=== PATIENT | male | born 1940 | race Two or more races ===

== ENCOUNTER 2016-05-23 00:13 | Inpatient (IN) | payer MEDICAID ==
--- NOTE | 2016-05-23 00:34 | ED Physician Chart ---
Chief Complaint/HPI - Patient Information Date Seen:: 05/23/16 Time Seen:: 00:20 Chief Complaint:: poor oral intake History of Present Illness:: poor oral intake for two days. No vomiting, diarrhea, chest pain, fever, shortness or breath. Allergies:: Allergies Allergy/AdvReac Type Severity Reaction Status Date / Time MDX No Known Allergies - Nka Allergy Verified 05/23/16 00:24 [No Known Allergies - Nka] Historian:: Patient Review:: Nurse's Note Reviewed, Transfer documents Reviewed Review of Systems - Review of Systems General/Constitutional: No fever, No chills Head: No headache Eyes: No loss of vision ENT: No earache Neck: No neck pain Cardio Vascular: No chest pain, No palpitations Pulmonary: No SOB GI: No nausea, No vomiting G/U: No dysuria Musculoskeletal: No bone or joint pain Endocrine: No polyuria Psychiatric: No prior psych history, No depression Hematopoietic: No bruising Allergic/Immuno: No urticaria Neurological: Syncope, Focal symptoms Past Medical History - Past Medical History Past Medical History: HTN, Dyslipidemia (spiral fracture right tibia; ischemic heart disease; s/p CVA; aphasia; cataract; dementia) Family History: Other (unavailable) Social History: Care Facility Surgical History: Pacemaker Psychiatricy History: Dementia Medication: Reviewed Family Medical History - Family Member Mother History Unknown: Yes Physical Exam - Physical Examination General/Constitutional: No distress Other Gen/Cons comments:: chronically ill appearing Head: Atraumatic Eyes: Lids, conjuctiva normal, PERRL Skin: Nl inspection, No skin lesions Other ENMT comments:: partially edentulous Neck: No nuchal rigidity Respiratory: Nl effort/Exclusion, Clear to Auscultation Cardio Vascular: RRR, No murmur, gallop, rubs, NL S1 S2 GI: No tenderness/rebounding/guarding, No organomegaly, No hernia, Normal BS's Other Extremities comments:: contractured RUE Other Neuro/Psych comments:: paralysis right arm Misc: Normal back Labs/Radiology/EKG Results - Lab Results Results: Laboratory Results - last 24 hr 05/23/16 05/23/16 05/23/16 00:35 00:35 00:35 WBC 5.5 D RBC 3.50 L Hgb 10.0 L Hct 30.8 L D MCV 87.9 MCH 28.6 MCHC Differential 32.5 RDW 15.2 Plt Count 473 H D MPV 6.2 Neutrophils % 61.9 Lymphocytes % 26.8 Monocytes % 10.1 H Eosinophils % 0.2 Basophils % 1.0 Sodium 131 L Potassium 3.6 Chloride 103 Carbon Dioxide 23.8 Anion Gap 7.8 BUN 8 Creatinine 0.4 L Est GFR ( Amer) TNP Est GFR (Non-Af Amer) TNP BUN/Creatinine Ratio 20.0 Glucose 89 Calcium 8.8 Lipase 31 Phenytoin 7.4 L - EKG Interpretations Rhythm: NSR Bryan: normal Rate: 72 ED Septic Shock - . Is Septic Shock (SBP<90, OR Lactate>4 mmol\L) present?: No Reassessment (Disposition) - Reassessment Reassessment Condition:: Unchanged - Diagnosis Diagnosis:: anorexia; anemia - Patient Disposition Admitted to:: Med/Surg Spoke to:: Raymond Zamudio Admitting Medical Physician:: Raymond Zamudio Condition at Disposition:: Stable, Unchanged
[2016-05-23 00:48] LABS: % EOSINOPHILS 0.2 % (0.0-5.0); % LYMPHOCYTES 26.8 % (20.0-50.0); % MONOCYTES 10.1 % (2.0-10.0); % NEUTROPHILS 61.9 % (40.0-80.0); MEAN CELL VOLUME 87.9 fl (80-99); MEAN CORPUSCULAR HEMOGLOBIN 28.6 pg (27.0-31.0); MEAN CORPUSCULAR HGB CONC 32.5 pg (28.0-36.0); MEAN PLATELET VOLUME 6.2 fl; NEUTROPHILE ABSOLUTE 3.3 Th/cmm (1.8-8.0); RED CELL DISTRIBUTION WIDTH 15.2 % (11.5-20.0)
[2016-05-23 00:51] LABS: HEMATOCRIT 30.8 % (39.0-49.0); PLATELET COUNT 473 Th/cmm (150-400); WHITE BLOOD COUNT 5.5 Th/cmm (4.8-10.8)
[2016-05-23 01:01] LABS: ANION GAP 7.8 (7.0-16.0); BUN - UREA NITROGEN 8 mg/dL (7-25); CALCIUM SERUM 8.8 mg/dL (8.6-10.3); CARBON DIOXIDE 23.8 mEq/L (21.0-31.0); CHLORIDE 103 mEq/L (98-107); CREATININE - SERUM 0.4 mg/dL (0.7-1.3); GLUCOSE 89 mg/dL (70-105); LIPASE 31 U/L (11-82); POTASSIUM SERUM 3.6 mEq/L (3.5-5.1); SODIUM SERUM 131 mEq/L (136-145)
[2016-05-23] MEDS ORDERED: Magnesium Hydroxide (MOM) 30 mL UDC PO PRN (03:08)
[2016-05-23] MEDS ORDERED: Fleet Enema 135 mL RC PRN (03:08)
[2016-05-23] MEDS ORDERED: Acetaminophen 500 MG TAB PO PRN (03:08)
[2016-05-23] MEDS: D5-0.9%NS 1,000 ML IV SCH (04:45)
[2016-05-23] MEDS: Aspirin 81mg Chewable Tab PO SCH (09:42)
[2016-05-23] MEDS: Ferrous Sulfate 325 MG TAB PO SCH ×2 (09:43→18:38)
[2016-05-23] MEDS: Multivitamin Tab PO SCH (09:44)
--- NOTE | 2016-05-23 11:08 | History & Physical ---
CHIEF COMPLAINT: Poor oral intake with 21-pound weight loss over 9 months. HISTORY OF PRESENT ILLNESS: This is a 75-year-old male who was transferred from [facility] to [facility] ER for poor oral intake noted by the staff members. The patient has been noted to have 21-pound weight loss for the past 9 months with general weakness noted by the staff. During this time, the patient was noted to have anemia with hemoglobin of 7.4 and given iron supplementation. PAST MEDICAL HISTORY: The patient also has past medical history of dementia, hyperlipidemia, cataracts, osteoarthritis, seizure disorder, history of cardiac pacemaker, aphasia, hypertension, history of CVA with weakness to the left side. While in the ER, the patient had initial lab work, white count was normal at 5.5, hemoglobin 10.0, hematocrit 30.8, platelets 473. His phenytoin level was low at 7.4. Chem-7, sodium was low at 131, potassium 3.6, chloride 103, bicarbonate 23, BUN 8, creatinine 0.4, glucose 89. ALLERGIES: No known drug allergies. SOCIAL HISTORY: The patient is a resident at [facility]. Denies any tobacco use or alcohol use or IV drug use. FAMILY HISTORY: Noncontributory. REVIEW OF SYSTEMS: Essentially negative except for the symptoms noted in the HPI. PHYSICAL EXAMINATION: VITAL SIGNS: Temperature 97.8, pulse 78, respirations 18, blood pressure 129/65. GENERAL: This is a 75-year-old male, well developed, well nourished, appears stated age. HEENT: Normocephalic, atraumatic. Pupils equal, round, reactive to light and accommodation. Extraocular muscles intact. Ears: TMs intact. NECK: Supple, good range of motion. No thyromegaly. No lymphadenopathy. CARDIOVASCULAR: Regular rate and rhythm, no murmurs, rubs or clicks. LUNGS: Clear to auscultation. No rales, rhonchi or wheezing. ABDOMEN: Soft, nontender, nondistended. Bowel sounds are active in all 4 quadrants. No rebound tenderness, rigidity or guarding. EXTREMITIES: No clubbing, cyanosis or edema. NEUROLOGIC: Difficult to assess the patient's current condition. ASSESSMENT AND PLAN: 1. Poor oral intake and malnutrition with 21-pound weight loss. We will order nutritional consult. The patient currently on IV fluids. 2. Cerebrovascular accident with hemiparesis. We will order neuro consult with Dr. Cueva. 3. Hypertension and coronary artery disease. We will continue the patient's current blood pressure medication. 4. Dementia. 5. Anemia. We will continue iron supplementation. 6. Hyponatremia. The patient started on IV fluids at this time. 7. Seizure disorder. We will continue phenytoin. We will order neuro consult with Dr. Cueva. 8. Questionable history of depression. We will order a psych consult with Dr. Cam. JOB# [id number]
[2016-05-24] MEDS: D5-0.9%NS 1,000 ML IV SCH (05:39)
[2016-05-24] MEDS: Multivitamin Tab PO SCH (09:08)
[2016-05-24] MEDS: Ferrous Sulfate 325 MG TAB PO SCH ×2 (09:08→17:00)
[2016-05-24] MEDS: Aspirin 81mg Chewable Tab PO SCH (09:08)
--- NOTE | 2016-05-24 12:39 | Consultation ---
AGE: 75. SEX: Male. PHYSICIAN: Dr. Zamudio. SOLUTION ENGINEER: Dr. Cam. REASON FOR THE CONSULT: Agitation. HISTORY OF PRESENT ILLNESS: The patient is a 75-year-old male who was admitted to the hospital and the patient has been eating and he lost large amount of weight during the last few months. The patient said that he has poor appetite. The patient also has been in angry and in irritable mood at times. The patient also is restless and he tried to punch the staff when they try to help him. He also seems to be slightly confused and he was not able to answer any of questions coherently. PAST PSYCHIATRIC HISTORY: Not known, but the patient seems to might have dementia. PAST MEDICAL HISTORY: The patient admitted with weight loss. SOCIAL HISTORY: No known alcohol or drug use. MENTAL STATUS EXAM: The patient appears older than his stated age. Anxious. Irritable mood. Confused. Thought processes are circumstantial and tangential with flight of ideas. The patient did not answer questions regarding hallucinations or delusions, but seems to be actively responding to stimuli. The patient is alert and oriented to the situation, but not to the place or person. Unable to assess his memory because of his irritability and anger. ASSESSMENT: PRIMARY DIAGNOSIS: Unspecified psychosis. TREATMENT PLAN: We will continue monitoring his behavior and his condition closely. We will start the patient on Zyprexa 2.5 mg twice a day and we will adjust the dose. We will follow up. Thanks to Dr. Zamudio and will follow up with you. JOB# [id number]
[2016-05-25] MEDS: D5-0.9%NS 1,000 ML IV SCH ×3 (04:46→12:48)
[2016-05-25] MEDS: Multivitamin Tab PO SCH (09:08)
[2016-05-25] MEDS: Ferrous Sulfate 325 MG TAB PO SCH ×2 (09:08→16:56)
[2016-05-25] MEDS: Aspirin 81mg Chewable Tab PO SCH (09:09)
--- NOTE | 2016-05-25 18:40 | Admit Criteria Form ---
Admit Criteria Forms - Admit Criteria Diagnosis: MALNUTRITION Clinical Indications for Inpatient Care (Place 'X' for any and all applicable criteria): Ongoing inpatient care may be indicated for patient requiring artificial nutrition[B] as indicated by ANY ONE of the following (1)(32): [ ]I. BMI less than 16 [X]II Inability to maintain oral intake [ ]III. Severe metabolic abnormalities, including ANY ONE of the following(18): [ ]a) Metabolic acidosis as indicated by pH less than 7.30 [ ]b) Significant hypocalcemia as indicated by ANY ONE of the following(19): [ ]i) Calcium less than 7 mg/dL (1.75 mmol/L) [ ]ii) Calcium less than 8 mg/dL (2 mmol/L) with ANY ONE of the following: [ ]1) Neurologic symptoms [ ]2) Mental status changes [ ]3) Muscle spasms [ ]4) Seizures [ ]5) Breathing difficulty [ ]6) Cardiac arrhythmia or conduction defects [ ]7) Other significant symptoms or findings [ ]c) Significant hypomagnesemia as indicated by ANY ONE of the following(20)(21): [ ]i) Magnesium less than 1.0 mg/dL (0.41 mmol/L) [ ]ii) Magnesium less than 1.5 mg/dL (0.62 mmol/L) and ANY ONE of the following: [ ]1) Associated hypocalcemia with ANY ONE of the following: [ ]A. Neurologic symptoms [ ]B. Mental status changes [ ]C. Muscle spasms [ ]D. Seizures [ ]E. Breathing difficulty [ ]F. Cardiac arrhythmia or conduction defect [ ]G. Other significant findings [ ]2) Associated hypokalemia (potassium < 3 mEq/L (mmol/ L)) with risk of arrhythmia [ ]d) Refeeding syndrome with significant electrolyte abnormality as indicated by ANY ONE of the following(14)(15): [ ]i) Phosphorus less than 1 mg/dL (0.32 mmol/L) [ ]ii) Phosphorus < 1.5 mg/dL (0.48 mmol/L) with ANY ONE of the following significant symptoms or findings: [ ]1) Weakness [ ]2) Altered mental status(22) [ ]3) Breathing difficulty [ ]4) Seizures [ ]5) Rhabdomyolysis [ ] iii) Sodium less than 130 mEq/L (mmol/L) (new) [ ] iv) Sodium less than 135 mEq/L (mmol/L) with ANY ONE of the following: [ ]1) Mental status changes [ ]2) Seizures [ ] v) Potassium less than 3.0 mEq/L (mmol/L) despite treatment [ ]IV. Complication of parenteral nutrition requiring inpatient care; examples include(23): [ ]a) Catheter-related infection or thrombosis. [ ]b) Severe electrolyte abnormalities [ ]c) Severe hypoglycemia or hyperglycemia requiring inpatient care [ ]V. Complication of enteral nutrition requiring inpatient care (eg, gastric perforation) Extended stay beyond goal length of stay for primary condition may be needed until ALL of the following are present(1)(3)(16): [ ]a) Metabolic abnormalities resolved or manageable at a lower level of care ; examples include: [ ]i) Serum pH greater than 7.3 [ ]ii) Electrolyte status acceptable [ ]b) Complications of enteral or parenteral nutrition resolved or manageable at a lower level of care [ ]c) Medical comorbidities manageable at a lower level of care The original [facility] content created by [employer] has been revised. The portions of the content which have been revised are identified through the use of italic text or in bold, and [facility] has neither reviewed nor approved the modified material. All other unmodified content is copyright [facility] [facility]. Please see references footnoted in the original [facility] edition 2016 Admit Criteria Met?: Yes
--- NOTE | 2016-05-25 19:16 | Consultation ---
HISTORY OF PRESENT ILLNESS: A 75-year-old was brought in because the patient has been losing weight and getting weaker and weaker. Neurologically, patient with history of stroke with essentially aphasia, very limited speech. The patient with the right-sided weakness. X-rays, there is nothing new, this has been going on for some time. PAST MEDICAL HISTORY: 1. Stroke with the right-sided hemiplegia and aphasia 2. History of hypertension. 3. History of pacemaker. 4. Hyperlipidemia. 5. Dementia 6. Arthritis. 7. Cataracts. REVIEW OF SYSTEMS: The patient has weight loss. No marked abdominal pain. No complains of headaches. No chest pain, no shortness of breath. No cough, sputum or hemoptysis. SOCIAL HISTORY: Does not smoke or drink, in the resident facility. MEDICATIONS: As per reconciliation. Here, the patient is on aspirin 81, metoprolol, patient on Zyprexa 2.5 b.i.d. The patient on Dilantin 200 b.i.d., simvastatin, Zocor. PHYSICAL EXAMINATION: VITAL SIGNS: Temperature 97.7, blood pressure ____, pulse is around about 70s. NECK: Supple. No neck bruits. HEART: Sounds S1, S2. LUNGS: Clear. NEUROLOGIC: The patient is awake. The patient answers questions. Cranial nerves Pupils react to light. No definite field defect ____ right and left without difficulties. Slight facial droop, right. The patient moves the left-side okay, weakness, right arm, basically by the bedside. The patient's leg also weak on the right. INVESTIGATIONS: CT scan of the head pending, carotid Doppler pending. LABORATORY DATA: WBC is 5.5, hemoglobin is 10.0, platelets 473. Sodium 131, potassium 3.6, Dilantin level 7.5. IMPRESSION: 1. Stroke, right hemiplegia. 2. Seizures. Dilantin level 7.5, probably okay. He has had any seizure. I will keep it on the present dose. 3. The patient with weight loss. 4. Dementia. 5. Pacemaker. MANAGEMENT: CT scan of the head, carotid Doppler studies and labs. JOB# [id number]
--- NOTE | 2016-05-25 23:37 | Progress Notes ---
SUBJECTIVE: Chart reviewed and the patient interviewed. Also discussed the patient's condition with the staff and reviewed records and labs. The patient seems to be calmer and seems to be slightly less irritable and less agitated. The patient also still seems to be paranoid and staring at the space and seems to be responding to stimuli. He also still has periods of irritability, but less than before. He is also compliant in taking his medications, with no side effects of medications. ASSESSMENT: The patient is less agitated and less psychotic. TREATMENT PLAN: Continue Zyprexa at same dose. Also, continue to monitor behavior and continue to follow up. JOB# [id number]
[2016-05-26] MEDS: Ferrous Sulfate 325 MG TAB PO SCH ×2 (10:18→16:35)
[2016-05-26] MEDS: Aspirin 81mg Chewable Tab PO SCH (10:18)
[2016-05-26] MEDS: Multivitamin Tab PO SCH (10:18)
--- NOTE | 2016-05-26 13:22 | Diagnostic Imaging Report ---
Bilateral carotid Doppler ultrasound exam HISTORY: Stroke, CVA Sonographic sector images were obtained through the carotid bifurcation regions bilaterally. Associated Doppler data was obtained. The exam is limited and suboptimal due to lack of patient cooperation. Exam of the right side demonstrates generalized intimal thickening throughout the bifurcation region. No significant focal atherosclerotic plaque is seen. There is antegrade vertebral artery flow. Velocities and flow ratios are normal (ICC/CCA equals 0.79). The left side cannot be adequately evaluated due to lack patient cooperation. Velocities could not be obtained. IMPRESSION: 1. Incomplete exam is the left side cannot be evaluated due to lack of patient cooperation 2. No definite significant focal atherosclerotic plaque identified on the right side.
[2016-05-26 15:04] LABS: ALKALINE PHOSPHATASE 80 U/L (34-104); ANION GAP 6.2 (7.0-16.0); BILIRUBIN,TOTAL 0.1 mg/dL (0.3-1.0); BUN - UREA NITROGEN 7 mg/dL (7-25); BUN/CREATININE RATIO 23.3; CALCIUM SERUM 8.5 mg/dL (8.6-10.3); CARBON DIOXIDE 21.2 mEq/L (21.0-31.0); CHLORIDE 111 mEq/L (98-107); CHOLESTEROL 159 mg/dL (<200); CREATININE - SERUM 0.3 mg/dL (0.7-1.3); GLUCOSE 90 mg/dL (70-105); POTASSIUM SERUM 3.4 mEq/L (3.5-5.1); SGOT 13 U/L (13-39); SGPT/ALT 16 U/L (7-52); SODIUM SERUM 135 mEq/L (136-145); TRIGLYCERIDES 113 mg/dL (<150)
--- NOTE | 2016-05-26 16:47 | Diagnostic Imaging Report ---
CT scan of the brain without intravenous contrast HISTORY: Stroke, CVA Total DLP equals 664 CTDI equals 34.4 Axial sections were obtained from the base of the skull to the vertex. There is enlargement of the ventricular system along with enlargement of cerebral sulci and some recommended cisterns reflecting generalized severe atrophy. Hypodensity noted throughout the supratentorial white matter regions consistent with chronic small vessel ischemic disease. There is extensive hypodensity with volume loss consistent with a large region of encephalomalacia through the left parietal and occipital areas. Findings most likely related to changes of relatively large old infarcts. No acute intracerebral hemorrhage. No mass effect or shift of midline structures. No extra-axial masses or abnormal fluid collections. IMPRESSION: 1. Findings consistent with large areas of encephalomalacia and volume loss within the left parietal and occipital regions most likely related to changes of old infarcts. Correlation with patient history needed. 2. Severe generalized cerebral atrophy 3. Extensive supratentorial white matter changes most likely associated with chronic small vessel ischemic disease
--- NOTE | 2016-05-27 01:16 | Progress Notes ---
SUBJECTIVE: Chart reviewed and the patient interviewed. Also discussed the patient's condition with the staff and reviewed records and labs. The patient is still anxious, but his affect is brighter. The patient also still seems to be slightly agitated, but less than before. He also has been cooperative with his treatment. The patient denies any thoughts of suicide and denies any intention to harm himself. No side effects of medications. ASSESSMENT: The patient is less psychotic. TREATMENT PLAN: We will continue monitoring his behavior and his condition. Also, continue adjusting psychotropic medications and we will continue to follow up. [facility]# [id number]
[2016-05-27] MEDS: Multivitamin Tab PO SCH (09:11)
[2016-05-27] MEDS: Ferrous Sulfate 325 MG TAB PO SCH ×2 (09:11→16:34)
[2016-05-27] MEDS: Aspirin 81mg Chewable Tab PO SCH (09:11)
[2016-05-27] MEDS: D5-0.9%NS 1,000 ML IV SCH (09:13)
--- NOTE | 2016-05-28 03:05 | Consultation ---
REASON FOR CONSULTATION: Psychiatric evaluation. HISTORY OF PRESENT ILLNESS: A 75-year-old male admitted to the hospital. The patient has been losing some weight, poor appetite, noted to be irritable and restless. On [id number], the patient is calm, unfortunately not coherent. I am not really able to understand what he says. Dr. Cam has been seeing this patient over the past few days, has been making adjustments to his medication and treatments. No agitation noted. He is calm, no acute distress. MEDICATIONS: Reviewed. LABORATORY DATA: Labs reviewed. MENTAL STATUS EXAMINATION: stated age. Difficult to understand. Mood, unable to understand. Affect constricted. Thought processes, seems confused. He is trying to communicate, but I am not able to understand him. Concentration is fair. PROVISIONAL DIAGNOSIS: Unspecified psychosis. TREATMENT AND PLAN: Continue Zyprexa, titrate appropriately, monitor closely for any overt side effects. JOB# [id number]
[2016-05-28 11:16] LABS: ALDOLASE 2.6 U/L (3.3-10.3); T4 FREE 0.94 ng/dL (0.82-1.77)
--- NOTE | 2016-05-28 19:15 | Discharge Summary ---
PRELIMINARY DIAGNOSES: 1. Poor oral intake, malnutrition with 21-pound weight loss. 2. Cerebrovascular accident with hemiparesis. 3. Hypertension. 4. Coronary artery disease. 5. Dementia. 6. Anemia. 7. Hyponatremia. 8. Seizure disorder and questionable history of depression. DISCHARGE DIAGNOSES: 1. Poor oral intake. 2. Malnutrition. 3. 21-pound weight loss. 4. Cerebrovascular accident with hemiparesis. 5. Hypertension. 6. Coronary artery disease. 7. Dementia. 8. Anemia. 9. Hyponatremia. 10. Seizure disorder. BRIEF HISTORY OF PRESENT ILLNESS: This is a 75-year-old male who was transferred from long-term facility to [facility] ER for poor oral intake noted by the staff members. The patient has been noted to have had 21 pound weight loss in the past 9 months with general weakness noted by the staff. During this time, patient was noted to have anemia with hemoglobin of 7.4 and given iron supplementation. PAST MEDICAL HISTORY: Includes a history of dementia, hyperlipidemia, cataracts, osteoarthritis, seizure disorder, history of cardiac pacemaker, aphasia, hypertension and history of CVA with weakness to the left side. Initial lab work, white count was normal at 5.5, hemoglobin 10.0, hematocrit, ____, platelets 473. Phenytoin level was low at 7.4. Chem-7, sodium noted at 131, potassium 3.6, chloride 103, bicarbonate 23. BUN 8, creatinine 0.4, glucose 89. The patient was subsequently admitted for further evaluation and treatment. HOSPITAL COURSE: The patient was seen and evaluated by Neuro for a history of a CVA and seizure disorder. The patient underwent a CT of his during his hospital admission, which showed no acute intracranial hemorrhage, it was noted he has a previous CVA with large areas of encephalomalacia, volume loss to the left parietal and occipital regions, also severe generalized cerebral atrophy was noted with extensive ____ white matter changes associated with chronic small vessel the ischemia. The patient also underwent carotid duplex bilaterally, which the left side, was unable to be evaluated due to the patient's noncompliance with exam. The patient; however, had at the right side and evaluated which showed no significant focal atherosclerotic plaque. The patient also was seen and evaluated by Psychiatry, Dr. Cam, who evaluated the patient for psychosis. The patient currently had been placed on Zyprexa, which helped improve his current diagnosis of psychosis. The patient also was given Megace during his hospital stay, which helped improve his appetite. The patient was subsequently discharged in stable condition. He was transferred back to the long-term facility and to continue his current medications with the addition of Megace and Zyprexa. JOB# [id number]
== END 2016-05-27 17:14 | DRG 425 ==
LOC: ER 00:13 → TELE 03:00
PROVIDERS: ADMIT Family Medicine; ATTEND Family Medicine
DX: E87.1 Hypo-osmolality and hyponatremia (principal); E46 Unspecified protein-calorie malnutrition; F03.90 Unspecified dementia, unspecified severity, without behavioral disturbance, psychotic disturbance, mood disturbance, and anxiety; I69.354 Hemiplegia and hemiparesis following cerebral infarction affecting left non-dominant side; I10 Essential (primary) hypertension; I25.10 Atherosclerotic heart disease of native coronary artery without angina pectoris; D64.9 Anemia, unspecified; G40.909 Epilepsy, unspecified, not intractable, without status epilepticus; M19.90 Unspecified osteoarthritis, unspecified site; E78.5 Hyperlipidemia, unspecified; F29 Unspecified psychosis not due to a substance or known physiological condition; Z95.0 Presence of cardiac pacemaker; Z68.22 Body mass index [BMI] 22.0-22.9, adult; Z98.49 Cataract extraction status, unspecified eye; I69.320 Aphasia following cerebral infarction
CPT/HCPCS: 36415-UA; 70450-TC; 80048-TC; 80053-TC; 80061-TC; 80156-TC; 80185-TC; 82085-90; 82607-90; 82746-90; 83690-TC; 84439-90; 84443-TC; 85025-TC; 85652-TC; 93005; 93880-TC; J1644; J7042; Z7610

== ENCOUNTER 2018-04-29 15:26 | Inpatient (IN) | payer MEDICAID ==
--- NOTE | 2018-04-29 15:56 | ED Physician Chart ---
ED Chief Complaint/HPI - Patient Information Date Seen:: 04/29/18 Time Seen:: 15:40 Chief Complaint:: possible right hip fracture History of Present Illness:: Patient was sent here for possible fracture of his proximal right femur; mechanism unknown Allergies:: Allergies Allergy/AdvReac Type Severity Reaction Status Date / Time No Known Allergies Allergy Verified 05/23/16 00:34 Historian:: EMS Review:: Transfer documents Reviewed ED Review of Systems - Review of Systems General/Constitutional: No fever, No chills Skin: No skin lesions Head: No headache Eyes: No loss of vision ENT: No earache Neck: No neck pain, No swelling Cardio Vascular: No chest pain, No palpitations GI: No nausea, No vomiting G/U: No dysuria Musculoskeletal: Bone or joint pain ED Past Medical History - Past Medical History Past Medical History: Other (anemia; major depression; myocardial ischemia; status post spiral fracture right tibia; ischemic heart disease; hemiplegia and hemiparesis; seizure disorder; osteoarthritis; cataract; dementia) Family History: Other Social History: Care Facility (available) Surgical History: other Psychiatricy History: Depression (pacemaker) Medication: Reviewed Family Medical History - Family Member Mother History Unknown: Yes ED Physical Exam - Physical Examination Other Gen/Cons comments:: Chronically ill-appearing Head: Atraumatic Eyes: Lids, conjuctiva normal Skin: Nl inspection ENMT: External ears, nose nl Neck: No mass Respiratory: Nl effort/Exclusion Cardio Vascular: RRR GI: No tenderness/rebounding/guarding : No CVA tenderness Other Extremities comments:: Right-sided contracture Other Neuro/Psych comments:: Right upper extremity contracture ED Labs/Radiology/EKG Results - Lab Results Results: Abnormal Lab Results 04/29/18 04/29/18 16:00 16:00 WBC 13.3 H RBC 3.81 Hgb 11.9 L Hct 35.4 L MCV 92.9 MCH 31.2 H MCHC Differential 33.6 RDW 13.3 Plt Count 366 MPV 7.0 Neutrophils % 82.8 H Lymphocytes % 9.7 L Monocytes % 7.3 Eosinophils % 0.1 Basophils % 0.1 Sodium 138 Potassium 3.5 Chloride 103 Carbon Dioxide 27.0 Anion Gap 11.5 BUN 20 Creatinine 0.5 L Est GFR ( Amer) TNP Est GFR (Non-Af Amer) TNP BUN/Creatinine Ratio 40.0 Glucose 112 H Calcium 9.3 - Radiology Results Results: X-ray showed scoliosis and calcification of the aortic arch; no infiltrate. Right hip x-ray showed subcapital fracture ED Septic Shock - . Is Septic Shock (SBP<90, OR Lactate>4 mmol\L) present?: No ED Reassessment (Disposition) - Reassessment Reassessment Condition:: Unchanged - Diagnosis Diagnosis:: Subcapitate fracture right hip; dementia; right-sided weakness and contracture - Patient Disposition Admitted to:: Med/Surg Spoke to:: Gino Zamudio Admitting Medical Physician:: Gino Zamudio Condition at Disposition:: Stable, Unchanged
[2018-04-29 16:08] LABS: % BASOPHILS 0.1 % (0.0-2.0); % EOSINOPHILS 0.1 % (0.0-5.0); % LYMPHOCYTES 9.7 % (20.0-50.0); % MONOCYTES 7.3 % (2.0-10.0); % NEUTROPHILS 82.8 % (40.0-80.0); HEMATOCRIT 35.4 % (41.0-60); HEMOGLOBIN 11.9 gm/dL (12-16); LYMPHOCYTE ABSOLUTE 1.3 Th/cmm (1.5-3.0); MEAN CELL VOLUME 92.9 fl (80-99); MEAN CORPUSCULAR HEMOGLOBIN 31.2 pg (27.0-31.0); MEAN CORPUSCULAR HGB CONC 33.6 pg (28.0-36.0); PLATELET COUNT 366 Th/cmm (150-400); RED BLOOD COUNT 3.81 Mil/cmm (3.80-5.80); RED CELL DISTRIBUTION WIDTH 13.3 % (11.5-20.0); WHITE BLOOD COUNT 13.3 Th/cmm (4.8-10.8)
[2018-04-29 16:19] LABS: ANION GAP 11.5 (7.0-16.0); BUN - UREA NITROGEN 20 mg/dL (7-25); CALCIUM SERUM 9.3 mg/dL (8.6-10.3); CHLORIDE 103 mEq/L (98-107); CREATININE - SERUM 0.5 mg/dL (0.7-1.3); GLUCOSE 112 mg/dL (70-105); POTASSIUM SERUM 3.5 mEq/L (3.5-5.1); SODIUM SERUM 138 mEq/L (136-145)
[2018-04-29 23:11] VITALS: BP 131/64
[2018-04-30 06:25] LABS: % BASOPHILS 0.2 % (0.0-2.0); % LYMPHOCYTES 11.3 % (20.0-50.0); % MONOCYTES 9.2 % (2.0-10.0); % NEUTROPHILS 79.3 % (40.0-80.0); HEMATOCRIT 33.3 % (41.0-60); HEMOGLOBIN 10.9 gm/dL (12-16); LYMPHOCYTE ABSOLUTE 1.3 Th/cmm (1.5-3.0); MEAN CELL VOLUME 93.7 fl (80-99); MEAN CORPUSCULAR HEMOGLOBIN 30.8 pg (27.0-31.0); MEAN CORPUSCULAR HGB CONC 32.9 pg (28.0-36.0); MEAN PLATELET VOLUME 7.7 fl; NEUTROPHILE ABSOLUTE 8.9 Th/cmm (1.8-8.0); PLATELET COUNT 305 Th/cmm (150-400); RED BLOOD COUNT 3.55 Mil/cmm (3.80-5.80); RED CELL DISTRIBUTION WIDTH 13.4 % (11.5-20.0); WHITE BLOOD COUNT 11.2 Th/cmm (4.8-10.8)
[2018-04-30 06:41] LABS: ANION GAP 12.4 (7.0-16.0); BUN - UREA NITROGEN 18 mg/dL (7-25); CARBON DIOXIDE 26.2 mEq/L (21.0-31.0); CHLORIDE 105 mEq/L (98-107); CREATININE - SERUM 0.5 mg/dL (0.7-1.3); GLUCOSE 119 mg/dL (70-105); POTASSIUM SERUM 3.6 mEq/L (3.5-5.1); SODIUM SERUM 140 mEq/L (136-145)
--- NOTE | 2018-04-30 08:13 | History and Physical ---
History of Present Illness - HPI Chief Complaint: Possible right hip fracture HPI: 77 y/o male who presents to [facility] ER Here for possible right hip fracture. Was found to have tenderness to the right hip when the staff was turning the patient. Patient has a history of dementia, hyperlipidemia, cataracts, osteoarthritis, seizure d/o, cardiac pacemaker placement, aphasia, HTN, CVA w/ right sided weakness. While in the ER patient had an initial labwork which revealed.. - Lab Results Results: Abnormal Lab Results 04/29/18 04/29/18 16:00 16:00 WBC 13.3 H RBC 3.81 Hgb 11.9 L Hct 35.4 L MCV 92.9 MCH 31.2 H MCHC Differential 33.6 RDW 13.3 Plt Count 366 MPV 7.0 Neutrophils % 82.8 H Lymphocytes % 9.7 L Monocytes % 7.3 Eosinophils % 0.1 Basophils % 0.1 Sodium 138 Potassium 3.5 Chloride 103 Carbon Dioxide 27.0 Anion Gap 11.5 BUN 20 Creatinine 0.5 L Est GFR ( Amer) TNP Est GFR (Non-Af Amer) TNP BUN/Creatinine Ratio 40.0 Glucose 112 H Calcium 9.3 - Radiology Results Results: X-ray showed scoliosis and calcification of the aortic arch; no infiltrate. Right hip x-ray showed subcapital fracture Patient was subsequently admitted for further evaluation and treatment. Vital Signs: Last Vital Signs Temp 97.9 F 04/30/18 00:00 Pulse 95 04/30/18 00:00 Resp 18 04/30/18 04:00 BP 108/73 04/30/18 00:00 Pulse Ox 94 04/30/18 00:00 Past Medical History Cardiovascular: Report: CAD, HTN, Hyperlipidemia, Other (s/p pacemaker) Pulmonary: Report: COPD CUSHION FORMER: Report: CVA GI: Report: Other (aphasia) Psych: Report: No Pertinent Hx Musculoskeletal: Report: Osteoarthritis, Other (right hip fracture) Rheumatologic: Report: No pertinent Hx Infectious Disease: Report: No Pertinent Hx Renal/: Report: No Pertinent Hx Endocrine: Report: No Pertinent Hx Dermatology: Report: Other (dermatitis) - Past Surgical History Past Surgical History: No pertinent Hx Family Medical History - Family Member Mother History Unknown: Yes Other Medical History: Unable to obtain family medical history Social History Smoke: No Alcohol: None Drugs: None Lives: Shelter - Medications Home Medications: Home Medication Medication Instructions Recorded Type Aspirin [Aspirin Chewable] 81 mg PO DAILY 07/11/15 History Metoprolol Tartrate [Lopressor] 25 mg PO DAILY 07/11/15 History Multivitamin [Theragran] 1 tab PO DAILY 07/11/15 History Phenytoin Sodium Extended 200 mg PO BID 07/11/15 History [Dilantin] Psyllium [Metamucil] 1 tsp PO BID 07/11/15 History Simvastatin [Zocor] 40 mg PO HS 07/11/15 History Acetaminophen [Tylenol Extra 500 mg PO Q4HR PRN 05/23/16 History Strength] Acetaminophen [Tylenol] 650 mg PO Q4HR PRN 05/23/16 History Bisacodyl [Dulcolax] 10 mg RC DAILY PRN 05/23/16 History Docusate Sodium [Colace] 100 mg PO DAILY 05/23/16 History Ferrous Sulfate [Iron] 325 mg PO TID 05/23/16 History Fleet Enema 135 ml RC Q48HR PRN 05/23/16 History Magnesium Hydroxide [Milk of 30 ml PO DAILY PRN 05/23/16 History Magnesia] Magnesium Hydroxide [Milk of 30 ml PO DAILY PRN #0 udc 05/27/16 Rx Magnesia] - Allergies Allergies/Adverse Reactions: Allergies Allergy/AdvReac Type Severity Reaction Status Date / Time No Known Allergies Allergy Verified 05/23/16 00:34 Review of Systems - Review of Systems Constitutional: Report: No Significant Eyes: Report: No Significant ENT: Report: No Significant Respiratory: Report: No Significant Cardiovascular: Report: No Significant Gastrointestinal: Report: No Significant Genitourinary: Report: No Significant Musculoskeletal: Report: Other (right hip pain) Neurological: Report: Weakness (right sided weakness), Other (dementia) Physical Exam - Physical Exam HEENT: Report: Ears Nose Throat within normal limits, Pharnyx within normal limits Neck: Report: Within normal limits Cardiovascular Systems: Report: +s1/s2 noted, Regular, Rate and Rhythm Respiratory: Report: Breath Sounds are within normal limits Abdomen: Report: Non-tender to palpation Back: Report: Inspection of back is within normal limits. Extremities: Report: Other (c/o right hip pain) Skin: Report: Color of skin is within normal limits Neuro/Psych: Report: Mood affect is within normal limits, Weakness or sensory loss noted. (right sided weakness) - Lab Results All Lab Results last 24 hours: Laboratory Results - last 24 hr 04/29/18 04/29/18 04/30/18 16:00 16:00 05:50 WBC 13.3 H 11.2 H RBC 3.81 3.55 L Hgb 11.9 L 10.9 L Hct 35.4 L 33.3 L MCV 92.9 93.7 MCH 31.2 H 30.8 MCHC Differential 33.6 32.9 RDW 13.3 13.4 Plt Count 366 305 MPV 7.0 7.7 Neutrophils % 82.8 H 79.3 Lymphocytes % 9.7 L 11.3 L Monocytes % 7.3 9.2 Eosinophils % 0.1 0.0 Basophils % 0.1 0.2 Sodium 138 Potassium 3.5 Chloride 103 Carbon Dioxide 27.0 Anion Gap 11.5 BUN 20 Creatinine 0.5 L Est GFR ( Amer) TNP Est GFR (Non-Af Amer) TNP BUN/Creatinine Ratio 40.0 Glucose 112 H Calcium 9.3 04/30/18 05:50 WBC RBC Hgb Hct MCV MCH MCHC Differential RDW Plt Count MPV Neutrophils % Lymphocytes % Monocytes % Eosinophils % Basophils % Sodium 140 Potassium 3.6 Chloride 105 Carbon Dioxide 26.2 Anion Gap 12.4 BUN 18 Creatinine 0.5 L Est GFR ( Amer) TNP Est GFR (Non-Af Amer) TNP BUN/Creatinine Ratio 36.0 Glucose 119 H Calcium 9.0 - Assessment Assessment: right hip pain Subcapitate fracture right hip dementia HTn hyperlipidemia CAD leukocytosis improved. CVA w/ right-sided weakness and contracture - Plan Plan: admit to [facility] repeat CBC,CMP Rocephin 1gm IV ortho consult noted cardiology consult noted
[2018-04-30] MEDS ORDERED: Magnesium Hydroxide (MOM) 30 mL UDC PO PRN (08:24)
[2018-04-30] MEDS ORDERED: Fleet Enema 135 mL RC PRN (08:24)
--- NOTE | 2018-04-30 08:42 | Diagnostic Imaging Report ---
Pelvis (single view) HISTORY: Pain, preoperative Exam is extremely limited due to difficulty in patient positioning. The left femur is flexed across the lower pelvis resulting in partial obscuration of the right hip region. Questionable fracture in the region of the right femoral neck. A dedicated radiograph of the right hip would provide for further assessment. There is suggestion of a radiolucency within the intratrochanteric region of the left femur. Significance and etiology is uncertain. There is a severely distended stool-filled rectum consistent with a degree of fecal impaction. IMPRESSION: 1. Extremely limited exam. Partial obscuration of the right hip. Questionable fracture in the region of the right femoral neck. Dedicated radiographs of the right hip would provide additional assessment. 2. Radiolucency which appears to be within the intertrochanteric region of the left femur. Exact etiology uncertain. 3. Markedly distended stool-filled rectum consistent with a fecal impaction
--- NOTE | 2018-04-30 08:43 | Diagnostic Imaging Report ---
Right hip (single view) HISTORY: Pain Right hip is partially excluded. By the left femoral shaft. There is a mildly displaced intratrochanteric fracture. IMPRESSION: 1. Limited exam 2. Mildly displaced intratrochanteric fracture extending through the right femoral neck.
[2018-04-30] MEDS ORDERED: Morphine Sulfate 2 mg/mL 1mL Syr IVP PRN (08:44)
--- NOTE | 2018-04-30 08:44 | Diagnostic Imaging Report ---
Portable chest x-ray HISTORY: Cough, preoperative Exam limited due to difficulty in patient positioning. The heart is enlarged. Cardiac pacemaker lead wire projects over the right ventricle. Atherosclerotic calcification seen in the aorta. No acute focal pulmonary processes. IMPRESSION: 1. No acute focal prominent processes 2. Cardiomegaly with atherosclerotic vascular changes and pacemaker placement
[2018-04-30] MEDS: D5-0.45NS 1,000 ML IV SCH (09:00)
[2018-04-30] MEDS: Aspirin 81mg Chewable Tab PO SCH ×2 (09:49→10:10)
[2018-04-30] MEDS: Ferrous Sulfate 325 MG TAB PO SCH ×4 (09:49→20:20)
[2018-04-30] MEDS: Multivitamin Tab PO SCH ×2 (09:49→10:10)
[2018-04-30] MEDS: cefTRIAXone 1 GM in Sodium Chloride 0.9% 50 ML IV SCH (10:09)
--- NOTE | 2018-04-30 23:31 | Consultation ---
DATE OF CONSULTATION: 04/30/[address] Zamudio. HISTORY OF PRESENT ILLNESS: This is a 77-year-old male patient who has right hip fracture, following this, the patient is admitted. The patient is a poor historian. History is available from the medical records. PAST MEDICAL HISTORY: Dementia, hyperlipidemia, cataracts, osteoarthritis, seizure disorder, sick sinus syndrome with pacemaker, CVA with late effect, left-sided weakness. FAMILY HISTORY: Unremarkable. SOCIAL HISTORY: No history of smoking, alcohol abuse. ALLERGIES: None. PHYSICAL EXAMINATION: VITAL SIGNS: Blood pressure 120/80, pulse 70, and respirations 20. HEAD: Normocephalic. No lumps or bumps. EYES: Pupils equal, reactive to light. Fundi show AV nicking, sclerae white, conjunctivae pink. NECK: Carotid 2+. Normal upstroke. JVD flat. Thyroid not palpable. Lymph nodes not palpable. CHEST: Shows increased AP diameter. No kyphosis, scoliosis. LUNGS: Bilateral bronchovesicular breath sounds. HEART: PMI fifth intercostal space with lateral to midclavicular line. S1, S2. No S3. Soft S4. ABDOMEN: Soft. Liver and spleen not palpable. No organomegaly. Bowel sounds active. NEUROLOGIC: Left-sided weakness. CLINICAL IMPRESSION: Right hip fracture, dementia, hyperlipidemia, cataracts, osteoarthritis, seizure disorder, sick sinus syndrome with pacemaker, cerebrovascular accident with late effect, and left-sided weakness. PLAN: The patient is cleared for surgery. JOB# [id number]
--- NOTE | 2018-05-01 06:10 | General Progress Note ---
Subjective - Review of Systems Service Date: 05/01/18 Subjective: Patient is resting in bed. No acute distress. Awake, alert, afebrile Objective - Results Result Diagrams: 04/30/18 05:50 04/30/18 05:50 Recent Labs: Laboratory Last Values WBC 11.2 Th/cmm (4.8-10.8) H 04/30/18 05:50 RBC 3.55 Mil/cmm (3.80-5.80) L 04/30/18 05:50 Hgb 10.9 gm/dL (12-16) L 04/30/18 05:50 Hct 33.3 % (41.0-60) L 04/30/18 05:50 MCV 93.7 fl (80-99) 04/30/18 05:50 MCH 30.8 pg (27.0-31.0) 04/30/18 05:50 MCHC Differential 32.9 pg (28.0-36.0) 04/30/18 05:50 RDW 13.4 % (11.5-20.0) 04/30/18 05:50 Plt Count 305 Th/cmm (150-400) 04/30/18 05:50 MPV 7.7 fl 04/30/18 05:50 Neutrophils % 79.3 % (40.0-80.0) 04/30/18 05:50 Lymphocytes % 11.3 % (20.0-50.0) L 04/30/18 05:50 Monocytes % 9.2 % (2.0-10.0) 04/30/18 05:50 Eosinophils % 0.0 % (0.0-5.0) 04/30/18 05:50 Basophils % 0.2 % (0.0-2.0) 04/30/18 05:50 Sodium 140 mEq/L (136-145) 04/30/18 05:50 Potassium 3.6 mEq/L (3.5-5.1) 04/30/18 05:50 Chloride 105 mEq/L (98-107) 04/30/18 05:50 Carbon Dioxide 26.2 mEq/L (21.0-31.0) 04/30/18 05:50 Anion Gap 12.4 (7.0-16.0) 04/30/18 05:50 BUN 18 mg/dL (7-25) 04/30/18 05:50 Creatinine 0.5 mg/dL (0.7-1.3) L 04/30/18 05:50 Est GFR ( Amer) TNP 04/30/18 05:50 Est GFR (Non-Af Amer) TNP 04/30/18 05:50 BUN/Creatinine Ratio 36.0 04/30/18 05:50 Glucose 119 mg/dL (70-105) H 04/30/18 05:50 Calcium 9.0 mg/dL (8.6-10.3) 04/30/18 05:50 - Physical Exam Vitals and I&O: Vital Signs Temp 97.5 F 05/01/18 04:00 Pulse 89 05/01/18 04:00 Resp 18 05/01/18 04:00 BP 102/57 05/01/18 04:00 Pulse Ox 91 05/01/18 04:00 Intake & Output 04/30/18 04/30/18 05/01/18 06:59 18:59 06:59 Intake Total 100 350 0 Output Total 1 Balance 99 350 0 Weight (lbs) 52.571 kg 52.526 kg 52.163 kg Intake: Oral 100 350 0 Output: Urine 1 Stool 0 Other: # Voids 2 Weight Source Bedscale Bedscale Bedscale Active Medications: Current Medications Acetaminophen (Tylenol) 650 mg PO Q4HR PRN PRN Reason: Pain or Fever >101 Stop: 06/29/18 08:23 Aspirin (Aspirin Chewable) 81 mg PO DAILY [facility] Stop: 06/29/18 08:59 Last Admin: 04/30/18 10:10 Dose: Not Given Bisacodyl (Dulcolax 10 Mg Supp) 10 mg RC DAILY PRN PRN Reason: Constipation Stop: 06/29/18 08:23 Docusate Sodium (Colace) 100 mg PO DAILY [facility] Stop: 06/29/18 08:59 Last Admin: 04/30/18 09:50 Dose: Not Given Ferrous Sulfate (Iron) 325 mg PO TID [facility] Stop: 06/29/18 08:59 Last Admin: 04/30/18 20:20 Dose: Not Given Ceftriaxone Sodium 1 gm/ (Sodium Chloride) 50 mls @ 100 mls/hr IV Q24HR [facility] Stop: 06/29/18 08:59 Last Admin: 04/30/18 10:09 Dose: Not Given Dextrose/Sodium Chloride (D5-0.45ns) 1,000 mls @ 50 mls/hr IV .Q20H [facility] Stop: 06/29/18 08:44 Last Admin: 04/30/18 09:00 Dose: Not Given Magnesium Hydroxide (Milk Of Magnesia) 30 ml PO DAILY PRN PRN Reason: Constipation Stop: 06/29/18 08:23 Metoprolol Tartrate (Lopressor) 25 mg PO DAILY [facility] Stop: 06/29/18 08:59 Last Admin: 04/30/18 09:49 Dose: Not Given Morphine Sulfate (Morphine) 1 mg IVP Q4HR PRN PRN Reason: Pain (Moderate) Stop: 06/29/18 08:43 Multivitamins/Vitamin C (Theragran) 1 tab PO DAILY [facility] Stop: 06/29/18 08:59 Last Admin: 04/30/18 10:10 Dose: Not Given Phenytoin (Dilantin) 200 mg PO BID [facility] Stop: 06/29/18 08:59 Last Admin: 04/30/18 17:23 Dose: Not Given Psyllium Hydrophilic Mucilloid (Metamucil) 1 pkt PO BID [facility] Stop: 06/29/18 08:59 Last Admin: 04/30/18 17:23 Dose: Not Given Simvastatin (Zocor) 40 mg PO HS [facility]; Protocol Stop: 06/29/18 20:59 Last Admin: 04/30/18 20:20 Dose: Not Given Sodium Phosphate (Fleet Enema) 135 ml RC Q48HR PRN PRN Reason: Constipation Stop: 06/29/18 08:23 General: Alert, No acute distress HEENT: Atraumatic, PERRLA, EOMI Neck: Supple Cardiovascular: Regular rate, Normal S1, Normal S2 Lungs: Clear to auscultation Abdomen: Bowel sounds Extremities: Other (right hip fracture) - Procedures Procedures: Procedures Procedure Code Date IMMOBILIZATION OF RIGHT LOWER EXTREMITY USING BRACE [id number] 07/11/15 MUSCULOSKELETAL SURGERY 20788 07/11/15 Assessment/Plan - Assessment Assessment: right hip pain Subcapital fracture right hip dementia HTN hyperlipidemia CAD leukocytosis CVA w/ right-sided weakness and contracture anemia - Plan Plan: admit to [facility] repeat CBC,CMP Rocephin 1gm IV ortho consult
[2018-05-01 06:46] LABS: % BASOPHILS 0.5 % (0.0-2.0); % EOSINOPHILS 0.1 % (0.0-5.0); % LYMPHOCYTES 13.1 % (20.0-50.0); % MONOCYTES 9.4 % (2.0-10.0); % NEUTROPHILS 76.9 % (40.0-80.0); HEMATOCRIT 30.3 % (41.0-60); HEMOGLOBIN 10.3 gm/dL (12-16); LYMPHOCYTE ABSOLUTE 1.3 Th/cmm (1.5-3.0); MEAN CELL VOLUME 92.3 fl (80-99); MEAN CORPUSCULAR HEMOGLOBIN 31.3 pg (27.0-31.0); MEAN CORPUSCULAR HGB CONC 33.9 pg (28.0-36.0); MEAN PLATELET VOLUME 7.2 fl; MONOCYTE ABSOLUTE 0.9 Th/cmm (0.3-1.0); NEUTROPHILE ABSOLUTE 7.8 Th/cmm (1.8-8.0); PLATELET COUNT 357 Th/cmm (150-400); RED BLOOD COUNT 3.28 Mil/cmm (3.80-5.80); RED CELL DISTRIBUTION WIDTH 13.2 % (11.5-20.0)
[2018-05-01 07:02] LABS: ANION GAP 13.4 (7.0-16.0); BUN - UREA NITROGEN 22 mg/dL (7-25); CALCIUM SERUM 8.9 mg/dL (8.6-10.3); CARBON DIOXIDE 25.9 mEq/L (21.0-31.0); CHLORIDE 108 mEq/L (98-107); CREATININE - SERUM 0.5 mg/dL (0.7-1.3); GLUCOSE 122 mg/dL (70-105); POTASSIUM SERUM 3.3 mEq/L (3.5-5.1); SODIUM SERUM 144 mEq/L (136-145)
[2018-05-01] MEDS: Aspirin 81mg Chewable Tab PO SCH (09:48)
[2018-05-01] MEDS: Multivitamin Tab PO SCH (09:49)
[2018-05-01] MEDS: Ferrous Sulfate 325 MG TAB PO SCH ×3 (09:50→20:24)
[2018-05-01] MEDS: cefTRIAXone 1 GM in Sodium Chloride 0.9% 50 ML IV SCH (12:02)
[2018-05-01] MEDS: D5-0.45NS 1,000 ML IV SCH (12:03)
[2018-05-01] MEDS ORDERED: Potassium Chloride 20 mEq ER Tab PO ONE (16:39)
--- NOTE | 2018-05-02 00:46 | Consultation ---
DATE OF CONSULTATION: 05/01/2018 HISTORY OF PRESENT ILLNESS: The patient is a 77-year-old male admitted to [facility] on 04/29/2018 for evaluation of right hip pain. He was sent to the Emergency Room from the shelter where he resides. There is not much history that accompanies him. Apparently, it was determined by the staff that he was having right hip pain while they were moving him or turning him. He has had prior admissions here for such as failure to thrive and for a fracture of the right tibia. Additional past history gleaned from the medical records include anemia, major depression, myocardial ischemia, history of right tibia fracture, right hemiplegia, seizure disorder, arthritis, cataracts, dementia, cardiac pacemaker, aphasia, hypertension, history of CVA, hyperlipidemia, and cataracts. ADDITIONAL PAST HISTORY, FAMILY HISTORY, SOCIAL HISTORY, AND REVIEW OF SYSTEMS: Not available. PHYSICAL EXAMINATION: The patient was examined in his hospital room. He was found to be lying on his right side with his hips and knees flexed and drawn up. Examination of the upper extremities revealed right-sided weakness. Left side had adequate strength but limitation of motion due to disuse. Lower extremities, both legs are drawn up at the hips, knees. I attempted to straighten the left leg and was not able to fully straighten it out. I could not get him off his right side to try to examine the right leg much more. He was noted to have mild swelling of both ankles. Neurologic exam, difficult to assess. He has feeling in all areas. He could not follow commands. I cannot determine volitional movements. IMAGING STUDIES: I reviewed x-rays in the PACS. X-rays of the right hip and of the pelvis showing both hips, there is a fracture of the right femoral neck with sclerotic edges and the bone looks demineralized. This is probably not a fresh fracture. I would stage it a month old or more, all of the bones have characteristic of osteopenia. Left hip is poorly positioned, but I cannot detect any obvious fracture. Chest x-ray showed mild thoracic scoliosis. ORTHOPEDIC DIAGNOSES: 1. Fracture, right femoral neck. 2. Post cerebrovascular accident with right hemiplegia. 3. 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 4. Status post history of right tibia fracture. RECOMMENDATIONS: The patient does not appear to be active or community ambulator who carries numerous diagnoses that make his care difficult. He does not appear to be a surgical candidate for hip replacement. It is hard to determine his pain level. He is lying on his right side and that is where the fractured hip is. I think he could be maintained on positioning, possibly bed to chair and allow the hip to settle down. The pain should improve or disappear given time. Thank you for this interesting referral. JOB# [id number]
[2018-05-02] MEDS: D5-0.45NS 1,000 ML IV SCH (06:03)
--- NOTE | 2018-05-02 07:12 | General Progress Note ---
Subjective - Review of Systems Service Date: 05/02/18 Subjective: Patient is resting in bed. No acute distress. Awake, alert, afebrile. Objective - Results Result Diagrams: 05/01/18 06:20 05/01/18 06:20 Recent Labs: Laboratory Last Values WBC 10.0 Th/cmm (4.8-10.8) 05/01/18 06:20 RBC 3.28 Mil/cmm (3.80-5.80) L 05/01/18 06:20 Hgb 10.3 gm/dL (12-16) L 05/01/18 06:20 Hct 30.3 % (41.0-60) L 05/01/18 06:20 MCV 92.3 fl (80-99) 05/01/18 06:20 MCH 31.3 pg (27.0-31.0) H 05/01/18 06:20 MCHC Differential 33.9 pg (28.0-36.0) 05/01/18 06:20 RDW 13.2 % (11.5-20.0) 05/01/18 06:20 Plt Count 357 Th/cmm (150-400) 05/01/18 06:20 MPV 7.2 fl 05/01/18 06:20 Neutrophils % 76.9 % (40.0-80.0) 05/01/18 06:20 Lymphocytes % 13.1 % (20.0-50.0) L 05/01/18 06:20 Monocytes % 9.4 % (2.0-10.0) 05/01/18 06:20 Eosinophils % 0.1 % (0.0-5.0) 05/01/18 06:20 Basophils % 0.5 % (0.0-2.0) 05/01/18 06:20 Sodium 144 mEq/L (136-145) 05/01/18 06:20 Potassium 3.3 mEq/L (3.5-5.1) L 05/01/18 06:20 Chloride 108 mEq/L (98-107) H 05/01/18 06:20 Carbon Dioxide 25.9 mEq/L (21.0-31.0) 05/01/18 06:20 Anion Gap 13.4 (7.0-16.0) 05/01/18 06:20 BUN 22 mg/dL (7-25) 05/01/18 06:20 Creatinine 0.5 mg/dL (0.7-1.3) L 05/01/18 06:20 Est GFR ( Amer) TNP 05/01/18 06:20 Est GFR (Non-Af Amer) TNP 05/01/18 06:20 BUN/Creatinine Ratio 44.0 05/01/18 06:20 Glucose 122 mg/dL (70-105) H 05/01/18 06:20 Calcium 8.9 mg/dL (8.6-10.3) 05/01/18 06:20 - Physical Exam Vitals and I&O: Vital Signs Temp 97.6 F 05/02/18 04:00 Pulse 83 05/02/18 04:00 Resp 18 05/02/18 04:00 BP 106/61 05/02/18 04:00 Pulse Ox 99 05/02/18 04:00 Intake & Output 05/01/18 05/02/18 05/02/18 18:59 06:59 18:59 Intake Total 500 960 Balance 500 960 Weight (lbs) 52.163 kg 52.39 kg Intake: Intake, IV Amount 900 D5-0.45NS 1,000 ml @ 50 900 mls/hr IV .Q20H [facility] Rx#: [id number] Oral 500 60 Other: # Voids 3 3 # Bowel Movements 1 1 Weight Source Bedscale Bedscale Active Medications: Current Medications Acetaminophen (Tylenol) 650 mg PO Q4HR PRN PRN Reason: Pain or Fever >101 Stop: 06/29/18 08:23 Aspirin (Aspirin Chewable) 81 mg PO DAILY [facility] Stop: 06/29/18 08:59 Last Admin: 05/01/18 09:48 Dose: 81 mg Bisacodyl (Dulcolax 10 Mg Supp) 10 mg RC DAILY PRN PRN Reason: Constipation Stop: 06/29/18 08:23 Docusate Sodium (Colace) 100 mg PO DAILY [facility] Stop: 06/29/18 08:59 Last Admin: 05/01/18 09:48 Dose: 100 mg Ferrous Sulfate (Iron) 325 mg PO TID [facility] Stop: 06/29/18 08:59 Last Admin: 05/01/18 20:24 Dose: 325 mg Ceftriaxone Sodium 1 gm/ (Sodium Chloride) 50 mls @ 100 mls/hr IV Q24HR [facility] Stop: 06/29/18 08:59 Last Admin: 05/01/18 12:02 Dose: 100 mls/hr Dextrose/Sodium Chloride (D5-0.45ns) 1,000 mls @ 50 mls/hr IV .Q20H [facility] Stop: 06/29/18 08:44 Last Admin: 05/02/18 06:03 Dose: 50 mls/hr Magnesium Hydroxide (Milk Of Magnesia) 30 ml PO DAILY PRN PRN Reason: Constipation Stop: 06/29/18 08:23 Metoprolol Tartrate (Lopressor) 25 mg PO DAILY [facility] Stop: 06/29/18 08:59 Last Admin: 05/01/18 10:49 Dose: Not Given Morphine Sulfate (Morphine) 1 mg IVP Q4HR PRN PRN Reason: Pain (Moderate) Stop: 06/29/18 08:43 Multivitamins/Vitamin C (Theragran) 1 tab PO DAILY [facility] Stop: 06/29/18 08:59 Last Admin: 05/01/18 09:49 Dose: 1 tab Phenytoin (Dilantin) 200 mg PO BID [facility] Stop: 06/29/18 08:59 Last Admin: 05/01/18 17:04 Dose: 200 mg Psyllium Hydrophilic Mucilloid (Metamucil) 1 pkt PO BID [facility] Stop: 06/29/18 08:59 Last Admin: 05/01/18 18:51 Dose: Not Given Simvastatin (Zocor) 40 mg PO HS [facility]; Protocol Stop: 06/29/18 20:59 Last Admin: 05/01/18 20:24 Dose: 40 mg Sodium Phosphate (Fleet Enema) 135 ml RC Q48HR PRN PRN Reason: Constipation Stop: 06/29/18 08:23 General: Alert, No acute distress HEENT: Atraumatic, PERRLA, EOMI Neck: Supple Cardiovascular: Regular rate, Normal S1, Normal S2 Lungs: Clear to auscultation Abdomen: Bowel sounds Extremities: Other (right hip fracture) - Procedures Procedures: Procedures Procedure Code Date IMMOBILIZATION OF RIGHT LOWER EXTREMITY USING BRACE [id number] 07/11/15 MUSCULOSKELETAL SURGERY 74202 07/11/15 Assessment/Plan - Assessment Assessment: right hip pain Subcapitate fracture right hip osteopenia dementia HTN hyperlipidemia CAD leukocytosis improved. CVA w/ right-sided weakness and contracture hypokalemia - Plan Plan: continue current treatment
[2018-05-02 07:20] LABS: ALBUMIN 3.3 gm/dL (4.2-5.5); ALKALINE PHOSPHATASE 62 U/L (34-104); ANION GAP 12.9 (7.0-16.0); BILIRUBIN,TOTAL 0.5 mg/dL (0.3-1.0); BUN - UREA NITROGEN 22 mg/dL (7-25); CALCIUM SERUM 8.9 mg/dL (8.6-10.3); CARBON DIOXIDE 24.8 mEq/L (21.0-31.0); CHLORIDE 112 mEq/L (98-107); CREATININE - SERUM 0.6 mg/dL (0.7-1.3); GLUCOSE 144 mg/dL (70-105); MAGNESIUM 2.4 mg/dL (1.9-2.7); POTASSIUM SERUM 3.7 mEq/L (3.5-5.1); SGOT 10 U/L (13-39); SGPT/ALT 9 U/L (7-52); SODIUM SERUM 146 mEq/L (136-145); TOTAL PROTEIN,SERUM 6.7 gm/dL (6.0-8.3)
[2018-05-02] MEDS: cefTRIAXone 1 GM in Sodium Chloride 0.9% 50 ML IV SCH (08:59)
[2018-05-02] MEDS: Multivitamin Tab PO SCH (09:01)
[2018-05-02] MEDS: Ferrous Sulfate 325 MG TAB PO SCH ×3 (09:01→20:30)
[2018-05-02] MEDS: Aspirin 81mg Chewable Tab PO SCH (09:01)
[2018-05-03] MEDS: D5-0.45NS 1,000 ML IV SCH (01:56)
--- NOTE | 2018-05-03 08:05 | General Progress Note ---
Subjective - Review of Systems Service Date: 05/03/18 Subjective: Patient is resting in bed. No acute distress. Awake, alert, afebrile. No new changes. Objective - Results Result Diagrams: 05/01/18 06:20 05/02/18 06:33 Recent Labs: Laboratory Last Values WBC 10.0 Th/cmm (4.8-10.8) 05/01/18 06:20 RBC 3.28 Mil/cmm (3.80-5.80) L 05/01/18 06:20 Hgb 10.3 gm/dL (12-16) L 05/01/18 06:20 Hct 30.3 % (41.0-60) L 05/01/18 06:20 MCV 92.3 fl (80-99) 05/01/18 06:20 MCH 31.3 pg (27.0-31.0) H 05/01/18 06:20 MCHC Differential 33.9 pg (28.0-36.0) 05/01/18 06:20 RDW 13.2 % (11.5-20.0) 05/01/18 06:20 Plt Count 357 Th/cmm (150-400) 05/01/18 06:20 MPV 7.2 fl 05/01/18 06:20 Neutrophils % 76.9 % (40.0-80.0) 05/01/18 06:20 Lymphocytes % 13.1 % (20.0-50.0) L 05/01/18 06:20 Monocytes % 9.4 % (2.0-10.0) 05/01/18 06:20 Eosinophils % 0.1 % (0.0-5.0) 05/01/18 06:20 Basophils % 0.5 % (0.0-2.0) 05/01/18 06:20 Sodium 146 mEq/L (136-145) H 05/02/18 06:33 Potassium 3.7 mEq/L (3.5-5.1) 05/02/18 06:33 Chloride 112 mEq/L (98-107) H 05/02/18 06:33 Carbon Dioxide 24.8 mEq/L (21.0-31.0) 05/02/18 06:33 Anion Gap 12.9 (7.0-16.0) 05/02/18 06:33 BUN 22 mg/dL (7-25) 05/02/18 06:33 Creatinine 0.6 mg/dL (0.7-1.3) L 05/02/18 06:33 Est GFR ( Amer) TNP 05/02/18 06:33 Est GFR (Non-Af Amer) TNP 05/02/18 06:33 BUN/Creatinine Ratio 36.7 05/02/18 06:33 Glucose 144 mg/dL (70-105) H 05/02/18 06:33 Calcium 8.9 mg/dL (8.6-10.3) 05/02/18 06:33 Magnesium 2.4 mg/dL (1.9-2.7) 05/02/18 06:33 Total Bilirubin 0.5 mg/dL (0.3-1.0) 05/02/18 06:33 AST 10 U/L (13-39) L 05/02/18 06:33 ALT 9 U/L (7-52) 05/02/18 06:33 Alkaline Phosphatase 62 U/L (34-104) 05/02/18 06:33 Total Protein 6.7 gm/dL (6.0-8.3) 05/02/18 06:33 Albumin 3.3 gm/dL (4.2-5.5) L 05/02/18 06:33 Globulin 3.4 gm/dL 05/02/18 06:33 Albumin/Globulin Ratio 1.0 (1.0-1.8) 05/02/18 06:33 - Physical Exam Vitals and I&O: Vital Signs Temp 98.7 F 05/03/18 04:00 Pulse 85 05/03/18 04:00 Resp 18 05/03/18 04:00 BP 131/50 05/03/18 04:00 Pulse Ox 93 05/03/18 04:00 Intake & Output 05/02/18 05/03/18 05/03/18 18:59 06:59 18:59 Intake Total 500 1054.167 Balance 500 1054.167 Weight (lbs) 52.39 kg 52.163 kg Intake: Intake, IV Amount 994.167 D5-0.45NS 1,000 ml @ 50 994.167 mls/hr IV .Q20H OPLY Rx#: [id number] Oral 500 60 Other: # Voids 3 3 # Bowel Movements 1 1 Stool Characteristics Soft Formed Weight Source Bedscale Bedscale Active Medications: Current Medications Acetaminophen (Tylenol) 650 mg PO Q4HR PRN PRN Reason: Pain or Fever >101 Stop: 06/29/18 08:23 Aspirin (Aspirin Chewable) 81 mg PO DAILY [facility] Stop: 06/29/18 08:59 Last Admin: 05/02/18 09:01 Dose: 81 mg Bisacodyl (Dulcolax 10 Mg Supp) 10 mg RC DAILY PRN PRN Reason: Constipation Stop: 06/29/18 08:23 Docusate Sodium (Colace) 100 mg PO DAILY [facility] Stop: 06/29/18 08:59 Last Admin: 05/02/18 09:01 Dose: 100 mg Ferrous Sulfate (Iron) 325 mg PO TID [facility] Stop: 06/29/18 08:59 Last Admin: 05/02/18 20:30 Dose: 325 mg Ceftriaxone Sodium 1 gm/ (Sodium Chloride) 50 mls @ 100 mls/hr IV Q24HR [facility] Stop: 06/29/18 08:59 Last Admin: 05/02/18 08:59 Dose: 100 mls/hr Dextrose/Sodium Chloride (D5-0.45ns) 1,000 mls @ 50 mls/hr IV .Q20H [facility] Stop: 06/29/18 08:44 Last Admin: 05/03/18 01:56 Dose: 50 mls/hr Magnesium Hydroxide (Milk Of Magnesia) 30 ml PO DAILY PRN PRN Reason: Constipation Stop: 06/29/18 08:23 Metoprolol Tartrate (Lopressor) 25 mg PO DAILY [facility] Stop: 06/29/18 08:59 Last Admin: 05/02/18 09:01 Dose: Not Given Morphine Sulfate (Morphine) 1 mg IVP Q4HR PRN PRN Reason: Pain (Moderate) Stop: 06/29/18 08:43 Multivitamins/Vitamin C (Theragran) 1 tab PO DAILY [facility] Stop: 06/29/18 08:59 Last Admin: 05/02/18 09:01 Dose: 1 tab Phenytoin (Dilantin) 200 mg PO BID [facility] Stop: 06/29/18 08:59 Last Admin: 05/02/18 16:45 Dose: 200 mg Psyllium Hydrophilic Mucilloid (Metamucil) 1 pkt PO BID POLY Stop: 06/29/18 08:59 Last Admin: 05/02/18 16:45 Dose: Not Given Simvastatin (Zocor) 40 mg PO HS POLY; Protocol Stop: 06/29/18 20:59 Last Admin: 05/02/18 20:30 Dose: 40 mg Sodium Phosphate (Fleet Enema) 135 ml RC Q48HR PRN PRN Reason: Constipation Stop: 06/29/18 08:23 General: Alert, No acute distress HEENT: Atraumatic, PERRLA, EOMI Neck: Supple Cardiovascular: Regular rate, Normal S1, Normal S2 Lungs: Clear to auscultation Abdomen: Bowel sounds Extremities: Other (right hip fracture) - Procedures Procedures: Procedures Procedure Code Date IMMOBILIZATION OF RIGHT LOWER EXTREMITY USING BRACE [id number] 07/11/15 MUSCULOSKELETAL SURGERY 12603 07/11/15 Assessment/Plan - Assessment Assessment: right hip pain Subcapitate fracture right hip osteopenia dementia HTN hyperlipidemia CAD leukocytosis improved. CVA w/ right-sided weakness and contracture hypokalemia - Plan Plan: continue current treatment transfer back to SNF if Ok with consultants.
[2018-05-03] MEDS: Multivitamin Tab PO SCH (08:13)
[2018-05-03] MEDS: Aspirin 81mg Chewable Tab PO SCH (08:14)
[2018-05-03] MEDS: Ferrous Sulfate 325 MG TAB PO SCH ×2 (08:14→15:08)
[2018-05-03] MEDS: cefTRIAXone 1 GM in Sodium Chloride 0.9% 50 ML IV SCH (08:17)
--- NOTE | 2018-05-04 08:33 | Discharge Summary ---
DATE OF DISCHARGE: 05/03/2018 PRELIMINARY DIAGNOSES: 1. Right hip pain. 2. Subcapital fracture of the right hip. 3. Dementia. 4. Hypertension. 5. Hyperlipidemia. 6. Coronary artery disease. 7. Leukocytosis. 8. 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 DISCHARGE DIAGNOSES: 1. Right hip pain. 2. Subcapital fracture of the right hip. 3. Dementia. 4. Hypertension. 5. Hyperlipidemia. 6. Coronary artery disease. 7. Leukocytosis. 8. 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 BRIEF HISTORY OF PRESENT ILLNESS: This is a 77-year-old male, who presents to [facility] ER for possible right hip fracture, was found to have tenderness to the right hip. Dictation ends here. JOB# [id number]
== END 2018-05-03 18:30 | DRG 252 ==
LOC: ER 15:26 → MSI 17:16 → TELE 19:09 → MSI 05-03 08:16
PROVIDERS: ADMIT Family Medicine; ATTEND Family Medicine
DX: K94.22 Gastrostomy infection (principal); L03.311 Cellulitis of abdominal wall; I69.351 Hemiplegia and hemiparesis following cerebral infarction affecting right dominant side; S72.011A Unspecified intracapsular fracture of right femur, initial encounter for closed fracture; F03.90 Unspecified dementia, unspecified severity, without behavioral disturbance, psychotic disturbance, mood disturbance, and anxiety; J44.9 Chronic obstructive pulmonary disease, unspecified; G40.909 Epilepsy, unspecified, not intractable, without status epilepticus; M25.551 Pain in right hip; E78.5 Hyperlipidemia, unspecified; I10 Essential (primary) hypertension; I25.10 Atherosclerotic heart disease of native coronary artery without angina pectoris; M19.90 Unspecified osteoarthritis, unspecified site; D72.829 Elevated white blood cell count, unspecified; M85.80 Other specified disorders of bone density and structure, unspecified site; E87.6 Hypokalemia; W18.30XA Fall on same level, unspecified, initial encounter; Y93.89 Activity, other specified; Y92.89 Other specified places as the place of occurrence of the external cause; Y99.8 Other external cause status; Z95.0 Presence of cardiac pacemaker; Z79.82 Long term (current) use of aspirin
CPT/HCPCS: 36415-UA; 71045-TC; 72170-TC; 73501; 80048-TC; 80053-TC; 83735-TC; 85025-TC; 93005; J0696; Z7610